=== PATIENT | female | born 1995 | race Caucasian/White ===

== ENCOUNTER 2025-01-17 12:34 | Emergency (ER) | payer BC ==
[~2025-01-17] VITALS: Ht 149.9 cm; Wt 61.2 kg
[2025-01-17 12:37] VITALS: BP 99/54
[2025-01-17 13:09] LABS: PLATELET COUNT (AUTO) 268 K/uL (179-408); RED BLOOD CELL COUNT(AUTO) 4.44 MIL/uL (3.63-4.92); RED CELL DISTRIBUTION WIDTH 13.6 % (12.3-17.7); WHITE BLOOD COUNT (AUTO) 5.4 K/uL (3.8-11.8)
[2025-01-17 13:12] LABS: CREATININE 0.8 mg/dL (0.6-1.3); SODIUM SERUM 143.0 mmol/L (136-145); UREA NITROGEN, BLOOD 13.0 mg/dL (7-18)
[2025-01-17 13:18] LABS: ASPARTATE AMINOTRANSFERASE 11.0 U/L (15-37); TOTAL PROTEIN, SERUM 6.9 g/dL (6.4-8.2)
[2025-01-17 14:17] VITALS: BP 102/59; O2SAT 98
== END 2025-01-17 14:05 | disposition home or self-care (01) ==
LOC: ER 12:44
DX: R03.0 Elevated blood-pressure reading, without diagnosis of hypertension (principal); F17.210 Nicotine dependence, cigarettes, uncomplicated; Z79.899 Other long term (current) drug therapy; Z98.51 Tubal ligation status
CPT/HCPCS: 36415; 84443; 85025; A4606; A4663